=== PATIENT | male | born 1960 | race Caucasian/White ===

== ENCOUNTER 2020-10-03 07:34 | Day surgery (SDC) | payer OTHER ==
[~2020-10-03] VITALS: Ht 182.9 cm; Wt 99.5 kg
[~2020-10-03 07:34] MED LIST: ALBU2.5V5 INH; AMLODIPINE-OLM1 EAC4 PO; Aspir 8181 MG PO; CLON1; CLON1 PO; CLOP75 PO; LISI20 PO; MAGNESIUM OXID500 MG PO; QUET200 PO; SPIR50 PO; STIOLTO RESPIMAT4 G1 INH; [UNRECOGNIZED DRUG - OTHER]
[2020-10-03] MEDS ORDERED: AMLO10 PO (08:12)
--- NOTE | 2020-10-03 09:35 | NUR ---
PT BACK TO RECOVERY ROOM VIA RECLINER AFTER PROCEDURE. AWAKE, ALERT, DENIES PAIN OR NEEDS. VSS, RIGHT WRIST SITE WITH TR BAND AND SPLINT IN PLACE. NO BLEEDING OR SWELLING AROUND SITE.
--- NOTE | 2020-10-03 10:55 | NUR ---
RIGHT RADIAL TR BAND HAS BEEN FULLY DEFLATED. NO BLEEDING OR SWELLING AT SITE. PT DENIES PAIN OR NEEDS. VSS.
--- NOTE | 2020-10-03 11:32 | NUR ---
IV DC'D, CATH INTACT. PT GIVEN DC INSTRUCTIONS, VERBALIZED UNDERSTANDING. RIGHT WRIST SITE SOFT, NON-TENDER, NO BLEEDING OR SWELLING AT SITE. CLOTH DOT DRESSING AND SPLINT IN PLACE ON RIGHT WRIST. OUT TO CAR VIA WHEELCHAIR.
== END 2020-10-03 11:30 | disposition home or self-care (01) ==
LOC: MHTC 07:34
DX: R07.89 Other chest pain (principal); J44.9 Chronic obstructive pulmonary disease, unspecified; I10 Essential (primary) hypertension; E78.5 Hyperlipidemia, unspecified; Z88.8 Allergy status to other drugs, medicaments and biological substances; Z87.891 Personal history of nicotine dependence
CPT/HCPCS: 76937; 93458; 99152; C1725; C1769; C1894; J1644; J2250; J3010; J7030; J7050; Q9967

== ENCOUNTER 2022-12-10 08:41 | Emergency (ER) | payer OTHER ==
[~2022-12-10] VITALS: Ht 172.7 cm; Wt 70.3 kg
[~2022-12-10 08:41] MED LIST changes: +AMLO10 PO
[2022-12-10 09:23] LABS: BASOPHILS ABSOLUTE AUTO 0.03 K/mm3 (0.00-0.23); BASOPHILS PERCENT AUTO 1 % (0-2); EOSINOPHILS ABSOLUTE AUTO 0.17 K/mm3 (0.00-0.68); EOSINOPHILS PERCENT AUTO 3 % (0-6); IMMATURE GRAN ABSOLUTE AUTO 0.02 K/mm3 (0.00-0.10); IMMATURE GRAN PERCENT AUTO 0 % (0-1); LYMPHOCYTES ABSOLUTE AUTO 0.88 K/mm3 (0.84-5.20); LYMPHOCYTES PERCENT AUTO 17 % (21-46); MONOCYTES ABSOLUTE AUTO 0.72 K/mm3 (0.16-1.47); MONOCYTES PERCENT AUTO 14 % (4-13); Mean Corpuscular HGB Conc 25.7 g/dL (31.5-36.5); Mean Corpuscular Volume 62 fL (80-100); Mean Platelet Volume 10.2 fL (9.1-12.4); NEUTROPHILS ABSOLUTE AUTO 3.27 K/mm3 (1.96-9.15); NEUTROPHILS PERCENT AUTO 64 % (41-73); NRBC ABSOLUTE 0.07 K/mm3 (0.00-0.02); NRBC Auto 1.4 /100 WBC (0.0-0.2); Platelet Count 347 K/mm3 (150-400); RDW Coefficient Variation 17.6 % (11.7-14.2); RDW Standard Deviation 38.9 fL (35.1-46.3); Red Blood Cell Count 2.75 M/mm3 (4.30-5.90); White Blood Cell Count 5.09 K/mm3 (4.00-11.30)
[2022-12-10 09:29] LABS: Hematocrit 17.1 % (37.0-53.0); Hemoglobin 4.4 g/dL (13.5-17.5)
[2022-12-10 09:51] LABS: Albumin, Blood 3.5 g/dL (3.4-5.0); Albumin/Globulin Ratio 1.1 (0.8-1.8); Bilirubin, Total 0.3 mg/dL (0.1-1.0); Bun/Creatinine Ratio 16.7 (12.0-20.0); Calcium, Blood 8.2 mg/dL (8.5-10.1); Creatinine, Blood 0.96 mg/dL (0.60-1.20); Globulin, Blood 3.1 g/dL (2.2-4.0); Potassium, Blood 4.1 mmol/L (3.5-5.5); Total Protein, Blood 6.6 g/dL (6.4-8.2)
[2022-12-10 10:01] LABS: Hematocrit 17.7 % (37.0-53.0); Hemoglobin 4.6 g/dL (13.5-17.5)
[2022-12-10 11:28] LABS: International Normalized Ratio 0.99; Prothrombin Time Results 10.4 Sec (9.7-11.5)
[2022-12-10 14:00] VITALS: BP 162/82
== END 2022-12-10 14:15 | disposition short-term general hospital (02) ==
LOC: ER 08:41
PROVIDERS: Emergency Medicine; Student in an Organized Health Care Education/Training Program
DX: K92.2 Gastrointestinal hemorrhage, unspecified (principal); D64.9 Anemia, unspecified; R07.9 Chest pain, unspecified; R53.1 Weakness; Z88.8 Allergy status to other drugs, medicaments and biological substances; Z79.899 Other long term (current) drug therapy; Z79.82 Long term (current) use of aspirin; Z87.891 Personal history of nicotine dependence
CPT/HCPCS: 71045; 80053; 84484; 85014; 85018; 85025; 85610; 85730; 86850; 86900; 86901; 86923; 93005; 93010; C9113; G0480; J7030; P9016

== ENCOUNTER 2024-12-23 08:15 | Day surgery (SDC) | payer OTHER ==
[2024-12-23] VITALS (17 sets, daily range): BP systolic 127–163; BP diastolic 71–101
[~2024-12-23] VITALS: Ht 182.9 cm; Wt 83.3 kg
[~2024-12-23 08:15] MED LIST changes: +ATOR80 PO; +DIVA500ER PO; +IPRAT-ALBUT 0.5-3 ML INH; +LOSA25 PO; +PANT40 PO; -QUET200 PO; +QUET25 PO; +TIOT18 INH
[2024-12-23] MEDS ORDERED: Lactated Ringer's 1,000 ML IV SCH ×2 (08:25→12:40)
[2024-12-23] MEDS ORDERED: Bupivacaine 0.5% HCl 5 MG/ML 30MLVIAL ONE (09:27)
[2024-12-23] MEDS ORDERED: FentaNYL Citrate 50 MCG/ML 2 ML Injection ONE (09:42)
[2024-12-23] MEDS ORDERED: propofoL 20 ML IV ONE (09:42)
[2024-12-23] MEDS ORDERED: Midazolam HCl 1MG / ML 2ML Vial ONE (09:42)
[2024-12-23] MEDS ORDERED: Ondansetron HCl 2 MG / ML 2ML Vial ONE (09:51)
[2024-12-23] MEDS ORDERED: Dexamethasone Sod Phos 10 MG/ML 1ML VIAL ONE (09:51)
[2024-12-23] MEDS ORDERED: Rocuronium Bromide 10 MG/ML 5ML Injection IV ONE (10:50)
[2024-12-23] MEDS ORDERED: Ketorolac Tromethamine 30mg Vial ONE (12:04)
[2024-12-23] MEDS ORDERED: Sugammadex Sodium 200 MG/2ML SDV (100 MG/ML) ONE (12:04)
[2024-12-23] MEDS ORDERED: FentaNYL Citrate 50 MCG/ML 2 ML Injection IV PRN ×2 (12:15→12:20)
[2024-12-23] MEDS ORDERED: HYDROmorphone HCl/Pf 1MG SYR IV PRN ×3 (12:15→12:40)
[2024-12-23] MEDS ORDERED: Ondansetron HCl 2 MG / ML 2ML Vial IV PRN ×2 (12:20→12:40)
[2024-12-23] MEDS ORDERED: Dexamethasone Sodium Phosphate 4 MG/ML 5ML VIAL IV PRN (12:20)
[2024-12-23] MEDS ORDERED: ClonazePAM 1 MG Tab PO PRN (12:35)
[2024-12-23] MEDS ORDERED: Albuterol 2.5 MG/3 ML VIAL INH PRN (12:35)
[2024-12-23] MEDS ORDERED: Acetaminophen 325 MG TABLET PO PRN (12:40)
[2024-12-23] MEDS ORDERED: OxyCODONE HCL 5 MG TAB PO PRN (12:40)
[2024-12-23] MEDS ORDERED: HYDROmorphone HCl/Pf 1MG SYR ONE ×2 (12:42→12:56)
[2024-12-23] MEDS ORDERED: Ketorolac Tromethamine 15mg Vial IV PRN (12:45)
[2024-12-23] MEDS ORDERED: Lactated Ringer's 1,000 ML IV ONE (12:47)
[2024-12-23] MEDS ORDERED: Ipratropium/Albuterol SulF 2.5-0.5MG/3 ML Amp INH SCH (13:00)
--- NOTE | 2024-12-23 13:57 | NUR ---
PATIENT POST-OP ARRIVAL TO ROOM @ 1345, VSS, LAP SITES C/D/I. WITH WOUND GLUE. DENIES N/V PAIN. REPORTS GAS PRESSURE IN SHOULDERS. ON 2L NC. TOLERATING SIPS OF CL. ORIENTED TO ROOM, CALL LIT IN REACH.
[2024-12-23] MEDS ORDERED: OXYC5 PO (15:18)
--- NOTE | 2024-12-23 15:40 | NUR ---
DISCHARGE PATIENT UP IN CHAIR, VOIDED, TOLERATING PO INTAKE. MEDICATE PER EMAR FOR PAIN. LAP SITES ARE C/D/I. EDUCATED OF DC INSTRUCTIONS, IV TAKEN OUT INTACT. 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
[2024-12-23] MEDS ORDERED: Divalproex Sodium 500 MG TABCR PO SCH (21:00)
[2024-12-23] MEDS ORDERED: Sennosides 8.6 MG Tab PO SCH (21:00)
[2024-12-23] MEDS ORDERED: QUEtiapine Fumarate 25 MG Tab PO SCH (21:00)
[2024-12-24] MEDS ORDERED: Losartan Potassium 25 MG Tab PO SCH (09:00)
[2024-12-24] MEDS ORDERED: Enoxaparin 40 MG/0.4 ML SYR SC SCH (09:00)
[2024-12-24] MEDS ORDERED: AmLODIPine Besylate 5 MG Tab PO SCH (09:00)
== END 2024-12-23 15:55 | disposition home or self-care (01) ==
LOC: ORSCMMR 08:15 → ORD 08:15 → ORSCMMR 08:26 → ORD 08:26 → SURS 13:25 → ORSCMMR 13:25 → SURS 15:55 → ORD 15:55 → ORSCMMR 15:55
PROVIDERS: Surgery
PROC: 0BUT4JZ Supplement Diaphragm with Synthetic Substitute, Percutaneous Endoscopic Approach (ICD-10-PCS; principal; 2024-12-23 09:30)
PROC: 8E0W4CZ Robotic Assisted Procedure of Trunk Region, Percutaneous Endoscopic Approach (ICD-10-PCS; principal; 2024-12-23 09:30)
DX: K44.9 Diaphragmatic hernia without obstruction or gangrene (principal); K21.9 Gastro-esophageal reflux disease without esophagitis; I10 Essential (primary) hypertension; J44.9 Chronic obstructive pulmonary disease, unspecified; F41.9 Anxiety disorder, unspecified; G50.0 Trigeminal neuralgia; Z79.899 Other long term (current) drug therapy; Z87.891 Personal history of nicotine dependence
CPT/HCPCS: 93005; 93010; A9270; C1781; J1100; J1171; J1885; J2250; J2405; J2704; J3010; J7120